=== PATIENT | male | born 1995 | race Caucasian/White ===

== ENCOUNTER → 2017-02-01 | Outpatient (CLI) | payer BC ==
[~2017-02-01] MED LIST: ABILIFY30 MG PO; ADDERALL XR30 MG PO; COGENTIN 1MG1 MG/TAB PO; DESYREL 50MG50 MG; EFFEXOR-XR150 MG PO; PROVIGIL200 MG PO; REMERON 15M15 MG/TA1 PO; SEROQUEL 1100 MG/TAB PO; WELLBUTRIN SR150 M1; WELLBUTRIN XL150 MG PO
== END ==
LOC: COL.RAD 10:05
DX: N45.1 Epididymitis (principal); I86.1 Scrotal varices

== ENCOUNTER → 2017-05-12 | Outpatient (CLI) | payer BC | LOC: BHSO 08:52 | DX: F90.0 Attention-deficit hyperactivity disorder, predominantly inattentive type (principal) ==

== ENCOUNTER → 2017-11-10 | Outpatient (CLI) | payer BC | LOC: BHSO 16:12 | DX: F90.0 Attention-deficit hyperactivity disorder, predominantly inattentive type (principal) | CPT/HCPCS: G0463 ==